=== PATIENT | female | born 1995 | race Two or more races ===

== ENCOUNTER 2021-06-29 19:28 | Emergency (ER) | payer OTHER ==
[~2021-06-29] VITALS: Ht 160 cm; Wt 64.9 kg
[2021-06-29 19:35] VITALS: BP 120/72
[2021-06-29 20:33] LABS: INFLUENZA A PATIENT NEGATIVE (NEGATIVE); INFLUENZA B PATIENT NEGATIVE (NEGATIVE)
--- NOTE | 2021-06-29 20:53 | PHYS DOC ---
Past Medical History Past Medical History: No Pertinent History Past Surgical History: No Surgical History Smoking Status: Current Every Day Smoker Alcohol Use: None Drug Use: None General Adult EDM: Chief Complaint: FLU SYMPTOM HPI: HPI: Patient is a 25-year-old female that presents today with cough, nasal c ongestion, body fatigue and headache. Patient states symptoms been ongoing for almost 2 weeks, she states that she has not taken anything ecam-pis-[id number] except for herbal teas for the symptoms she has also taken some Tylenol as needed for headache but has not taken any nasal decongestants or cough suppressants for this. Patient states that he she has not been immunized for COVID or influenza. Review of Systems: Review of Systems: Constitutional: fever or chills. [] Eyes: Denies change in visual acuity. [] HENT: nasal congestion or sore throat. [] Respiratory: cough denies shortness of breath. [] Cardiovascular: Denies chest pain or edema. [] GI: Denies abdominal pain, nausea, vomiting, bloody stools or diarrhea. [] : Denies dysuria. [] Musculoskeletal: Denies back pain or joint pain. [] Integument: Denies rash. [] Neurologic: Headache denies focal weakness or sensory changes. [] Endocrine: Denies polyuria or polydipsia. [] Lymphatic: Denies swollen glands. [] Psychiatric: Denies depression or anxiety. [] Heart Score: C/O Chest Pain: No Risk Factors: Risk Factors: DM, Current or recent (<one month) smoker, HTN, HLP, family hi story of CAD, obesity. Risk Scores: Score 0 - 3: 2.5% MACE over next 6 weeks - Discharge Home Score 4 - 6: 20.3% MACE over next 6 weeks - Admit for Clinical Observation Score 7 - 10: 72.7% MACE over next 6 weeks - Early Invasive Strategies Allergies: Allergies: Allergies Coded Allergies Type Severity Reaction Last Updated Verified No Known Drug Allergies 08/12/13 No Physical Exam: PE: Constitutional: Well developed, well nourished, no acute distress, non-toxic appearance. [] HENT: Normocephalic, atraumatic, bilateral external ears normal, oropharynx moist, no oral exudates, nose normal. [] Eyes: PERRLA, EOMI, conjunctiva normal, no discharge. [] Neck: Normal range of motion, no tenderness, supple, no stridor. [] Cardiovascular:Heart rate regular rhythm, no murmur [] Lungs & Thorax: Bilateral breath sounds clear to auscultation [] Abdomen: Bowel sounds normal, soft, no tenderness, no masses, no pulsatile masses. [] Skin: Warm, dry, no erythema, no rash. [] Back: No tenderness, no CVA tenderness. [] Extremities: No tenderness, no cyanosis, no clubbing, ROM intact, no edema. [] Neurologic: Alert and oriented X 3, normal motor function, normal sensory funct ion, no focal deficits noted. [] Psychologic: Affect normal, judgement normal, mood normal. [] Current Patient Data: Labs: Rapid strep test is negative per RN. Laboratory Tests Test 06/29/21 19:54 Influenza Type A Antigen Negative (NEGATIVE) Influenza Type B Antigen Negative (NEGATIVE) SARS-CoV-2 Antigen (Rapid) Negative (NEGATIVE) Vital Signs: Vital Signs Date Time Temp Pulse Resp B/P (MAP) Pulse Ox O2 Delivery O2 Flow Rate FiO2 06/29/21 19:35 98.7 112 18 120/72 (88) 98 Room Air 98.7 EKG: EKG: [] Radiology/Procedures: Radiology/Procedures: REASON: cough PROCEDURE: PORTABLE CHEST 1V EXAMINATION: Chest radiograph. VIEWS: Single AP view of the chest COMPARISON: None INDICATION:25 years, Female, cough. FINDINGS: Normal cardiomediastinal silhouette. No focal consolidation. No pleural effusion or pneumothorax. No acute osseous process. IMPRESSION: No acute cardiopulmonary process. Electronically signed by: Hung Person DO (06/29/2021 8:56 PM) [facility] Course & Med Decision Making: Course & Med Decision Making Pertinent Labs and Imaging studies reviewed. (See chart for details) 2044 I reviewed radiological and laboratory results with patient did inform her that there was no acute findings found today, did inform her that she could have had influenza or COVID over the last 2 to 3 weeks but she may be towards the tail end of all of her illness, patient is to take [id number] medications for nasal decongestant and cough suppressant, she can also take Tylenol and/or ibuprofen as needed for headache and fever and Afrin nasal spray for 3 days only. Patient should follow-up with her primary care physician or one of the listed clinics on the discharge sheet for further evaluation and management. [] Dragon Disclaimer: Marilyn Disclaimer: This electronic medical record was generated, in whole or in part, using a voice recognition dictation system. Departure Departure Impression: Primary Impression: Viral syndrome Disposition: 01 HOME / SELF CARE / HOMELESS Condition: STABLE Referrals: JENA LE (PCP) Patient Instructions: Viral Syndrome Additional Instructions: Ivcw-znc-gacsbtj nasal decongestant such as Sudafed or any other brand that has nasal decongestant and the title Ljwf-[id number]-kctygcs cough suppressants as needed for cough cold symptoms Afrin nasal spray 2 sprays each side of the nare twice daily for 3 days only Tylenol and/or ibuprofen as needed for fever and pain Stop smoking Follow-up with your primary care physician or one of the listed clinics below for further evaluation and management of your symptoms if you are not improved in 3 days Return to the emergency department for increased shortness of breath, fever that is not controlled with Tylenol and/or ibuprofen, or you are unable to keep any by mouth fluids down. [facility] [address] [place] [address] [facility] [address] [place] [address] [facility] [address] [place] [address] [facility] [address] [place] [address] [facility] [address] [place] [address] [facility] [address] [place] [address] [facility] [address] [place] [address] [facility] [address] [place] [address] [facility] [address] [place] [address] [facility] [address] [place] [address] DOMENICA PICHARDO CAR ICER Jun 29, 2021 20:53
--- NOTE | 2021-06-29 20:59 | RAD ---
EXAMINATION: Chest radiograph. VIEWS: Single AP view of the chest COMPARISON: None INDICATION:25 years, Female, cough. FINDINGS: Normal cardiomediastinal silhouette. No focal consolidation. No pleural effusion or pneumothorax. No acute osseous process. IMPRESSION: No acute cardiopulmonary process. Electronically signed by: Hung Person DO (06/29/2021 8:56 PM) [facility]
== END 2021-06-29 20:58 | disposition home or self-care (01) ==
LOC: ER 19:28
DX: B34.9 Viral infection, unspecified (principal); Z20.822 Contact with and (suspected) exposure to COVID-19; F17.200 Nicotine dependence, unspecified, uncomplicated
CPT/HCPCS: 71045; 87070; 87428; 87880; 99284